=== PATIENT | male | born 1935 | race Caucasian/White ===

== ENCOUNTER 2017-11-04 10:13 | Outpatient (CLI) | payer MEDICARE ==
[2017-11-04 11:50] LABS: Hemoglobin 12.4 g/dL (14.0-18.0); Mean Corpuscular HGB CONC 33.4 g/dL (32.0-36.0); Mean Corpuscular Hemoglobin 31.4 pg (27.0-31.0); Mean Platelet Volume 6.6 fL (7.4-10.4); Platelet Count 148 thou/uL (130-400); RBC Distribution Width 12.3 % (11.5-14.5); Red Blood Cell (RBC) Count 3.95 mill/uL (4.70-6.10); White Blood Cell (WBC) Count 5.4 thou/uL (4.8-10.8)
[2017-11-04 12:16] LABS: Anion Gap 13 mmol/L (10-20); BUN (Urea Nitrogen) 22 mg/dL (8.4-25.7); Calc. Creatinine Clearance 0 mL/min (70-130); Calcium 9.3 mg/dL (7.8-10.44); Carbon Dioxide 26 mmol/L (23-31); Chloride 103 mmol/L (98-107); Estimated GFR-MDRD 47; Glucose 107 mg/dL (83-110); Potassium 4.3 mmol/L (3.5-5.1); Sodium 138 mmol/L (136-145)
--- NOTE | 2017-11-04 21:04 | EKG ---
Test Reason : Blood Pressure : / mmHG Vent. Rate : 067 BPM Atrial Rate : 067 BPM P-R Int : 124 ms QRS Dur : 172 ms QT Int : 492 ms P-R-T Axes : 031 022 -18 degrees QTc Int : 519 ms AV sequential or dual chamber electronic pacemaker When compared with ECG of 11-FEB-2016 08:10, Electronic ventricular pacemaker has replaced Sinus rhythm Confirmed by JONNY CHEN ([id number]) on 11/04/2017 9:04:20 PM Referred By: KYLEE Confirmed By:JONNY CHEN
== END 2017-11-04 10:14 | disposition home or self-care (01) ==
LOC: LABBT 10:13
PROVIDERS: ATTEND Urology
DX: Z01.818 Encounter for other preprocedural examination (principal); N50.89 Other specified disorders of the male genital organs
CPT/HCPCS: 80048; 85027; 93005; 93010

== ENCOUNTER 2017-11-12 08:13 | Day surgery (SDC) | payer MEDICARE ==
[2017-11-04 10:45] VITALS: BMI 21.7
[2017-11-12] MEDS ORDERED: cefTRIAXone\\ROCEPHIN 1 GM, Syringe 0.4 ML in Sterile Water 9.6 ML SLOW IVP SCH (09:00)
[2017-11-12] MEDS ORDERED: Dexamethasone 4 mg/ml Vial ONE (09:08)
[2017-11-12] MEDS ORDERED: Fentanyl 250 MCG/5 ML VIAL ONE (09:39)
[2017-11-12] MEDS ORDERED: Bacitracin Zinc Ointment 30 gm TUBE ONE ×2 (09:43→12:49)
[2017-11-12] MEDS ORDERED: Bupivacaine PF 0.5% 30 ML VIAL ONE (09:43)
[2017-11-12] MEDS ORDERED: Furosemide 20 MG/2 ML VIAL ONE (11:03)
[2017-11-12] MEDS ORDERED: B & O ONE (11:03)
[2017-11-12] MEDS ORDERED: Acetaminophen/Codeine 30-300mg Tablet ONE (15:34)
[2017-11-12] MEDS ORDERED: PHENYLEPHRINE-NS 100 MCG/ML 10 ML SYRINGE ONE (16:45)
[2017-11-12] MEDS ORDERED: Ondansetron HCl/PF 4 MG/2 ML Vial ONE (16:45)
[2017-11-12] MEDS ORDERED: ePHEDrine/0.9% NaCl/PF SYRINGE 50 mg/10 ml ONE (16:45)
[2017-11-12] MEDS ORDERED: Glycopyrrolate 0.2 MG/ML 5 ML SYRINGE ONE (16:45)
[2017-11-12] MEDS ORDERED: Lidocaine 1% PF 5 ML VIAL ONE (16:46)
[2017-11-12] MEDS ORDERED: PROPOFOL 200 MG/20 ML VIAL ONE (16:46)
--- NOTE | 2017-11-12 16:55 | OP ---
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 SURGEON: Anne Narvaez M.D. ANESTHESIA: General with endotracheal tube and penile block using 10 mL of Marcaine. SPECIMENS: Distal penis including the entire glans and a total of 80,941 joules used. DRAIN REMAINING: A 20-Macedonian 2-way. INDICATIONS: The patient is an 82-year-old male who was seen in the office for retention and self-catheterizing, but ultimately did have a high-riding bladder neck that was concerning for obstruction, so we discussed the pros and cons of a definitive procedure in the hopes of getting him voiding without catheterization or at least reducing the number of times that he would need to catheterize. During this time period, the patient also noticed a lesion on his penis that was concerning and definitely needed to be biopsied if not resected. 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 PROCEDURE IN DETAIL: The patient was brought to the room by Anesthesia, lying table in supine position. After receiving general anesthetic, the patient was placed supine and he was prepped and draped in sterile fashion. A penile block using 10 mL of Marcaine was performed. A Mekhi was used as a tourniquet. Then measuring approximately 2 cm from the previously biopsied lesion near the urethral meatus, T=the distal penis was sharply excised and sent for specimen in permanent fashion. 3-0 PDS was used to ligate the distal ends of the corpora , and the tourniquet was removed. Bleeding was reassessed and fulguration was used for any small vessels. Another 2 sutures were placed with PDS to ensure adequate hemostasis of the corpora, and then attention was turned to the urethra. It was spatulated and reapproximated using 4-0 Monocryl to the subcutaneous skin of the phallus. Then, knowing that we were switching to another room for GLVP, I did not place a Clemens at this time. The patient was transferred to the cystoscopy suite for the second portion of the procedure. The patient was placed supine and then with his legs elevated in lithotomy, he was reprepped and draped. Using a 22.5 Macedonian scope, the urethra was traversed and tortuosity and narrowing with inability to press the scope further was initially noted. I used gentle pressure since there was not an obvious narrowing. This failed. I attempted to place a wire beyond this. I attempted to place a Glidewire, and I could not get this to angle properly. I attempted with a 17-Macedonian cystoscope and still was not able to proceed after significant pressure/attempts. So I got a short rigid ureteroscope and was able to enter into the bladder. The bulbar urethra was very scarred and stiff, but a wire was left in place and then the 17-Macedonian cystoscope was placed over the wire. With force, I was able to go through the scarred urethra and into the bladder. This was removed, keeping the wire in place and then the 22.5 Macedonian cystoscope was back fed over this and into the bladder. Again with significant force needed to go trough the scarred portion. All of this took approximately 25 minutes before we were able to actually start the GreenLight laser portion of the case. A power of 80 was used for the entire gland since it was not significantly enlarged. Care was taken to avoid the UO's and the area was adequately opened up. Near the end of the case, it was oozing from the right side and coagulation was used to coagulate this area. At a minimal volume, it was still noted to be oozing further from the right side of the prostate; more of the gland was removed in order to further isolate this area and help with hemostasis. So by the end of the case, there was no bleeding noted with a relatively decompressed bladder. Leaving a stiff wire in place, the scope was removed, and a 20-Macedonian catheter was placed over the wire and into the bladder. The bladder was then hand irrigated. No clots were noted. There was some blood tinged urine, which was anticipated. At this point, the catheter was secured, and bacitracin and sterile gauze was placed over the end of the penis itself. The patient tolerated the procedure well. ALEXANDER
== END 2017-11-12 17:05 | disposition home or self-care (01) ==
LOC: SDC 08:13
PROVIDERS: ATTEND Urology
PROC: 0VBSXZZ Excision of Penis, External Approach (ICD-10-PCS; principal; 2017-11-12)
PROC: 0V508ZZ Destruction of Prostate, Via Natural or Artificial Opening Endoscopic (ICD-10-PCS; 2017-11-12)
DX: C60.1 Malignant neoplasm of glans penis (principal); N40.1 Benign prostatic hyperplasia with lower urinary tract symptoms; R33.8 Other retention of urine; N35.9 Urethral stricture, unspecified; N28.9 Disorder of kidney and ureter, unspecified; I10 Essential (primary) hypertension; I48.91 Unspecified atrial fibrillation; Z79.01 Long term (current) use of anticoagulants; Z79.899 Other long term (current) drug therapy; Z90.89 Acquired absence of other organs; Z85.47 Personal history of malignant neoplasm of testis; Z87.440 Personal history of urinary (tract) infections; Z85.858 Personal history of malignant neoplasm of other endocrine glands; Z87.891 Personal history of nicotine dependence; Z92.3 Personal history of irradiation
CPT/HCPCS: 52648; 54120; 88307; C1758; C1769; A4216; J0696; J1100; J1940; J2001; J2405; J2704; J3010; S0020

== ENCOUNTER 2017-11-15 15:27 | Emergency (ER) | payer MEDICARE ==
[2017-11-15 16:14] LABS: Bilirubin Negative (Negative); Blood, Urine Large (Negative); Clarity Opaque (Clear); Glucose, Urine (Dipstick) Unable to Interpret mg/dL (Negative); Nitrite Unable to Interpret (Negative); Protein, Urine (Dipstick) > or equal to 300 mg/dL (Neg-Trace); Urobilinogen 0.2 mg/dL (0.2-1.0); pH, Urine 7.5 (5.0-9.0)
[2017-11-15 16:15] LABS: Leukocyte Trace (Negative)
[2017-11-15 16:17] LABS: RBC/HPF GREATER THAN 50-TNTC HPF (0-3)
[2017-11-15 16:18] LABS: Bacteria/HPF None Seen HPF (None Seen); Hyaline Casts/LPF NONE SEEN LPF (0-3 Hyaline); Squamous Epithelial 0-3 HPF (0-3)
== END 2017-11-15 17:01 | disposition home or self-care (01) ==
LOC: ERS 15:27
DX: T83.018A Breakdown (mechanical) of other urinary catheter, initial encounter (principal); R31.9 Hematuria, unspecified; I25.10 Atherosclerotic heart disease of native coronary artery without angina pectoris; N28.9 Disorder of kidney and ureter, unspecified; I35.0 Nonrheumatic aortic (valve) stenosis; Z85.47 Personal history of malignant neoplasm of testis; Z85.51 Personal history of malignant neoplasm of bladder; Z79.899 Other long term (current) drug therapy
CPT/HCPCS: 51702; 81003; 81015

== ENCOUNTER 2018-10-16 18:03 | Inpatient (IN) | payer MEDICARE ==
[2018-10-16 20:16] LABS: CKMB 2.5 ng/mL (0-6.6)
[2018-10-16] MEDS ORDERED: Piperacillin/Tazobactam 4.5 GM VIAL ONE (20:47)
--- NOTE | 2018-10-16 21:51 | CT ---
CT OF THE ABDOMEN AND PELVIS WITHOUT IV CONTRAST: 10/16/18 INDICATION: History of vomiting. COMPARISON: Prior study dated 07/14/14. FINDINGS: There are dilated loops of small bowel with a transition zone seen within the right upper quadrant o n image 37 of series 2. There is small bowel feces sign within the dilated loop of the distal ileum. The terminal ileum is normal. There is moderate distention of the bladder. There is postsurgical change of a partial small bowel re section with primary anastomosis within the left mid abdomen. There is severe vascular calcifications of the abdominopelvic vasculature. There is moderate distention of the bladder. There is air space c onsolidation of the right lower lobe. Unopacified liver, pancreas, adrenal glands, and right kidney a ppears within normal limits. The left kidney is atrophic with small cysts which are stable to prior e xam. Spleen is normal in size. There is medial scoliosis of the lumbar spine. There is scattered degenerative and osteoarthritic jerry nge. IMPRESSION: 1. Findings suggestive of moderate grade partial small bowel obstruction. Transition zone within the right upper quadrant of the abdomen. 2. Air space consolidation right lower lobe suspicious for aspiration or pneumonia. 3. Other chronic findings as above. POS: BENJI
[2018-10-16] MEDS ORDERED: Ondansetron PF 4 MG/2 ML Vial IVP PRN (22:06)
[2018-10-16] MEDS ORDERED: Zolpidem Tartrate 5 MG TAB PO PRN (22:06)
[2018-10-16] MEDS ORDERED: Senokot S 8.6-50 MG TAB PO PRN (22:06)
[2018-10-16] MEDS ORDERED: Acetaminophen 325 MG TAB PO PRN (22:06)
[2018-10-16 22:44] LABS: Troponin I 0.074 ng/mL (< 0.028)
[2018-10-17] MEDS ORDERED: Ondansetron ODT 4 MG TAB ONE (00:33)
[2018-10-17 02:00] LABS: Troponin I 0.091 ng/mL (< 0.028)
[2018-10-17 03:53] LABS: #Lymphocytes 0.4 thou/uL (1.20-3.40); #Monocytes 0.9 thou/uL (0.11-0.59); #Neutrophils 5.4 thou/uL (1.40-6.50); %Basophils 0.6 % (0.0-1.0); %Eosinophils 0.1 % (0.0-10.0); %Lymphocytes 6.5 % (21.0-51.0); %Monocytes 12.6 % (0.0-10.0); %Neutrophils 80.1 % (42.0-75.0); Hemoglobin 12.9 g/dL (14.0-18.0); Mean Corpuscular HGB CONC 34.2 g/dL (32.0-36.0); Mean Corpuscular Hemoglobin 30.9 pg (27.0-31.0); Mean Corpuscular Volume 90.2 fL (78.0-98.0); Mean Platelet Volume 6.8 fL (7.4-10.4); Platelet Count 133 thou/uL (130-400); RBC Distribution Width 12.3 % (11.5-14.5); Red Blood Cell (RBC) Count 4.19 mill/uL (4.70-6.10); White Blood Cell (WBC) Count 6.8 thou/uL (4.8-10.8)
[2018-10-17 04:10] LABS: Anion Gap 16 mmol/L (10-20); BUN (Urea Nitrogen) 44 mg/dL (8.4-25.7); Calc. Creatinine Clearance 0 mL/min (70-130); Calcium 9.3 mg/dL (7.8-10.44); Carbon Dioxide 27 mmol/L (23-31); Chloride 92 mmol/L (98-107); Estimated GFR-MDRD 28; Glucose 99 mg/dL (83-110); Potassium 4.4 mmol/L (3.5-5.1); Sodium 131 mmol/L (136-145)
[2018-10-17 04:14] LABS: Troponin I 0.083 ng/mL (< 0.028)
[2018-10-17 06:25] LABS: Troponin I 0.078 ng/mL (< 0.028)
[2018-10-17] MEDS ORDERED: hydrALAZINE 20 MG/ML VIAL SLOW IVP PRN (10:21)
[2018-10-17] MEDS ORDERED: Labetalol HCl 100 MG/20 ML VIAL SLOW IVP PRN (10:21)
--- NOTE | 2018-10-17 10:29 | PDOC.PN ---
- Subjective Encounter Start Date: 10/17/18 Encounter Start Time: 10:27 Temitope Oakes was seen today in follow-up of small bowel obstruction. He has has several large bowel movements this morning. It is reported that his stools are now watery, and he has had many. He denies any abdominal pain. He denies feeling short of breath. he does admit to an occasional cough. - Objective Resuscitation Status - Order Detail: 10/16/18 22:06 Resuscitation Status Routine Resuscitation Status: FULL: Full Resuscitation Discussed with: patient MAR Reviewed: Yes Result Diagrams: 10/17/18 03:27 10/17/18 03:27 Phys Exam - Physical Examination HEENT: PERRLA Respiratory: no wheezing + rales at the right base, Cardiovascular: RRR, no significant murmur, no rub Gastrointestinal: soft, non-tender, no distention, positive bowel sounds Musculoskeletal: no edema, pulses present Dx/Plan (1) Partial small bowel obstruction Status: Acute (2) Diarrhea Code(s): R19.7 - DIARRHEA, UNSPECIFIED Status: Acute (3) S/P TAVR (transcatheter aortic valve replacement) Code(s): Z95.2 - PRESENCE OF PROSTHETIC HEART VALVE Status: Chronic (4) Hypertension Code(s): I10 - ESSENTIAL (PRIMARY) HYPERTENSION Status: Chronic (5) Chronic anticoagulation Code(s): Z79.01 - OCEAN FORWARDER (CURRENT) USE OF ANTICOAGULANTS Status: Chronic (6) Acute on chronic kidney failure Code(s): N17.9 - ACUTE KIDNEY FAILURE, UNSPECIFIED; N18.9 - CHRONIC KIDNEY DISEASE, UNSPECIFIED Status: Acute (7) CAD (coronary artery disease) Code(s): I25.10 - ATHSCL HEART DISEASE OF [place] CORONARY ARTERY W/O ANG PCTRS Status: Chronic - Plan * Partial small bowel obstruction- will check a small bowel X-ray to determine if this has resolved- clinically it appears so * Diarrhea- this is perfuse - will check stool studies * HTN- will have PRN medication available * CAD- stable * Chronic anticoagulation- Eliquis is on hold, if stool is negative for occult blood then will re-start with Elquis ( if obstruction resolved or bridge with Lovenox).
[2018-10-17] MEDS ORDERED: Dextrose 5 % And 0.9 % NaCl 1,000 ML IV SCH ×2 (10:30)
[2018-10-17] MEDS ORDERED: MD-Gastroview 120 ML BOT ONE (13:48)
[2018-10-17] MEDS: Piperacillin/Tazobactam 2.25 GM in Sodium Chloride 0.9% 100 ML IVPB SCH ×2 (14:02→21:33)
--- NOTE | 2018-10-17 14:18 | RAD ---
SMALL BOWEL FOLLOW THROUGH: Date: 10/17/18 INDICATION: Partial small bowel obstruction. FINDINGS: [employer] Basis Trader images demonstrate mildly distended loops of small bowel within the central abdomen. Gas is pre sent at the level of the rectum. There is a rectal tube within the rectum. There is patchy opacity wi thin the right lung base. There are scattered vascular calcifications. Subsequent images after admini stration of Gastrografin contrast demonstrate migration of contrast through mildly dilated loops of s mall bowel within the mid to right lower quadrant of the abdomen. There is contrast opacification of the colon by the 25 minute time lori. Contrast is at the level of the rectum by the 1 hour time lori. IMPRESSION: Mild to moderate partial small bowel obstruction. Small bowel transit time of 25 minutes. POS: CANDIDA
[2018-10-17 16:47] VITALS: BMI 17.7
--- NOTE | 2018-10-17 18:52 | PDOC.EVN ---
Event Note - Event Note Event Note: Will place on Heparin SQ while Eliquis is on HOLD
[2018-10-17] MEDS: Dextrose 5 % And 0.9 % NaCl 1,000 ML IV SCH (19:10)
[2018-10-17] MEDS: Heparin 5,000 UNITS/ML VIAL SC SCH (21:34)
[2018-10-17] MEDS: Famotidine/PF 20 mg/2ml Vial SLOW IVP SCH (21:34)
[2018-10-18] MEDS: Dextrose 5 % And 0.9 % NaCl 1,000 ML IV SCH ×3 (00:16→09:08)
[2018-10-18] MEDS: Piperacillin/Tazobactam 2.25 GM in Sodium Chloride 0.9% 100 ML IVPB SCH (05:53)
[2018-10-18 06:31] LABS: Anion Gap 12 mmol/L (10-20); BUN (Urea Nitrogen) 48 mg/dL (8.4-25.7); Calc. Creatinine Clearance 21 mL/min (70-130); Calcium 8.6 mg/dL (7.8-10.44); Carbon Dioxide 27 mmol/L (23-31); Chloride 106 mmol/L (98-107); Estimated GFR-MDRD 33; Glucose 204 mg/dL (83-110); Potassium 3.5 mmol/L (3.5-5.1); Sodium 141 mmol/L (136-145)
[2018-10-18 06:32] LABS: Band 4 % (5-11); Eosinophils 2 % (0-10); Hemoglobin 11.8 g/dL (14.0-18.0); Lymphocytes 15 % (21-51); MDiff Complete? YES; Mean Corpuscular HGB CONC 34.1 g/dL (32.0-36.0); Mean Corpuscular Hemoglobin 30.6 pg (27.0-31.0); Mean Corpuscular Volume 89.8 fL (78.0-98.0); Mean Platelet Volume 6.9 fL (7.4-10.4); Monocytes 8 % (0-10); Neutrophil 71 % (42-75); Platelet Count 130 thou/uL (130-400); Platelet Morphology Comment Appears Adequate; RBC Distribution Width 12.4 % (11.5-14.5); Red Blood Cell (RBC) Count 3.85 mill/uL (4.70-6.10); White Blood Cell (WBC) Count 4.1 thou/uL (4.8-10.8)
[2018-10-18] MEDS: Famotidine/PF 20 mg/2ml Vial SLOW IVP SCH ×2 (09:07→20:36)
[2018-10-18] MEDS ORDERED: Apixaban 2.5 MG TAB PO SCH ×2 (09:12→21:00)
[2018-10-18] MEDS: Heparin 5,000 UNITS/ML VIAL SC SCH (09:24)
[2018-10-18] MEDS: Apixaban 2.5 MG TAB PO SCH ×2 (10:17→20:36)
[2018-10-18] MEDS: Sotalol HCl 80 MG TAB PO SCH ×2 (10:17→20:37)
--- NOTE | 2018-10-18 16:18 | PDOC.PN ---
- Subjective Encounter Start Date: 10/18/18 Encounter Start Time: 16:16 Mr. Linn was seen today in follow-up of partial small bowel obstruction. He was seen earlier this morning, and again this afternoon. He does not have any nausea or vomiting, and the diarrhea has resolved. He also denies any abdominal pain. - Objective Resuscitation Status - Order Detail: 10/16/18 22:06 Resuscitation Status Routine Resuscitation Status: FULL: Full Resuscitation Discussed with: patient MAR Reviewed: Yes Vital Signs & Weight: Vital Signs (12 hours) Temp Pulse BP Pulse Ox 10/18/18 14:58 98.1 F 10/18/18 10:38 97.2 F L 10/18/18 10:17 70 150/86 H 10/18/18 08:00 95 10/18/18 07:06 98.0 F Weight Admit Weight 116 lb 13.52 oz Weight 116 lb 13.52 oz Most Recent Monitor Data Heart Rate from ECG 71 NIBP 186/107 NIBP BP-Mean 133 Respiration from ECG 17 SpO2 100 I&O: 10/17/18 10/18/18 10/19/18 06:59 06:59 06:59 Intake Total 225 Output Total 1450 Balance -1225 Result Diagrams: 10/18/18 05:27 10/18/18 05:27 Phys Exam - Physical Examination HEENT: PERRLA Respiratory: no wheezing, no rales, no rhonchi, clear to auscultation bilateral Cardiovascular: RRR, no significant murmur, no rub Gastrointestinal: soft, non-tender, no distention, positive bowel sounds Musculoskeletal: no edema, pulses present Dx/Plan (1) Partial small bowel obstruction Status: Acute (2) Diarrhea Code(s): R19.7 - DIARRHEA, UNSPECIFIED Status: Acute (3) S/P TAVR (transcatheter aortic valve replacement) Code(s): Z95.2 - PRESENCE OF PROSTHETIC HEART VALVE Status: Chronic (4) Hypertension Code(s): I10 - ESSENTIAL (PRIMARY) HYPERTENSION Status: Chronic (5) Chronic anticoagulation Code(s): Z79.01 - SURVEYOR HYDROGRAPHIC (CURRENT) USE OF ANTICOAGULANTS Status: Chronic (6) Acute on chronic kidney failure Code(s): N17.9 - ACUTE KIDNEY FAILURE, UNSPECIFIED; N18.9 - CHRONIC KIDNEY DISEASE, UNSPECIFIED Status: Acute (7) CAD (coronary artery disease) Code(s): I25.10 - ATHSCL HEART DISEASE OF [place] CORONARY ARTERY W/O ANG PCTRS Status: Chronic - Plan * Partial Small Bowel Obstruction- resolved * AFIB- will re-start Sotolal and Elquis- Heparin will be discontinued * CAD- stable * HTN- blood pressure is elevated- will continue PRN Hydralazine and Labetalol * Aspiration Pneumonia- change Zosyn to Augmentin * Willadvance to clear liquids, and then as tolerated. He can likely be discharged home this evening if he tolerates a solid diet..
[2018-10-18] MEDS: Amoxicillin/Potassium Clav 875 MG TAB PO SCH (20:36)
[2018-10-18] MEDS ORDERED: Atorvastatin Calcium 20 MG TAB PO SCH (21:00)
[2018-10-19] MEDS ORDERED: Cyanocobalamin (Vitamin B-12) 1,000 MCG TAB PO SCH (09:00)
[2018-10-19] MEDS: Apixaban 2.5 MG TAB PO SCH (09:02)
[2018-10-19] MEDS: Amoxicillin/Potassium Clav 875 MG TAB PO SCH (09:02)
[2018-10-19] MEDS: Famotidine/PF 20 mg/2ml Vial SLOW IVP SCH (09:03)
[2018-10-19] MEDS: Sotalol HCl 80 MG TAB PO SCH (09:04)
[2018-10-19 09:11] VITALS: BP 171/96
[2018-10-19 15:13] VITALS: TEMP 97.7
--- NOTE | 2018-10-19 18:52 | DIS ---
DATE OF ADMISSION: 10/16/2018 DATE OF DISCHARGE: 10/19/2018 DISCHARGE DIAGNOSES: 1. Partial small bowel obstruction, conservatively managed, resolving. 2. Right lower lobe pneumonia, mild. 3. Diarrhea, resolving. 4. Hypertension, stable. 5. Chronic anticoagulation with Eliquis. 6. Acute kidney injury on chronic kidney disease. CONSULTATIONS: Dr. El with General Surgery Service. PERTINENT LAB AND X-RAY FINDINGS: Sodium ranged between 129 to 141. Creatinine ranged between 1.95 to 2.36. Estimated GFR ranged between 26 to 33. Troponin I ranged between 0.074 to 0.091. CBC showed a hemoglobin ranging between 11.8 to 12.9. Urine culture dated 10/16/2018, showed 50,000 to 75,000 colonies of enterobacter cloacae complex. Stool Hemoccult dated 10/17/2018, negative x1. Stool lactoferrin dated 10/17/2018, positive. C difficile antigen and toxin on 10/17/2018, negative. CT of the abdomen and pelvis dated 10/16/2018, showed moderate grade partial small bowel obstruction with transition zone in the right upper quadrant. Airspace consolidation in the right lower lobe. Small bowel x-ray dated 10/17/2018, showed mild to moderate partial small bowel obstruction. HOSPITAL COURSE: This patient was initially admitted to the intermediate care unit after presenting with increased abdominal pain with CT imaging of the abdomen and pelvis showing evidence of partial small bowel obstruction. The patient was placed on n.p.o. status and given IV fluids. The patient slowly clinically improved with conservative management. N.p.o. status and pain medications. The patient underwent plain radiographs of small bowel showing overall improvement and obstruction, and did not need acute surgical intervention. The patient initially was placed on a rectal tube in the emergency department due to persistent diarrhea. However, this was discontinued. The patient was also placed on antibiotic therapy after consolidation and the right lower lobe was noted on CT imaging. The patient was also noted with enterobacter species. Positive urine culture and continued on Augmentin 875 mg twice daily. Overall, the patient did remain clinically stable and advanced diet, tolerating regular oral intake without nausea or vomiting. The patient to clinically improved with supportive and conservative management. I have examined the patient the time of discharge and discussed followup instructions. The patient overall verbalized understanding and agreement, and ready for discharge on 10/19/2018. DISCHARGE MEDICATIONS: 1. Eliquis 2.5 mg p.o. b.i.d. 2. Lipitor 20 mg p.o. at bedtime. 3. Vitamin D3 of 2000 units p.o. daily. 4. Vitamin B12 1250 mcg p.o. daily. 5. Sotalol 40 mg p.o. b.i.d. 6. Zantac 150 mg p.o. at bedtime. 7. Amoxicillin/clavulanic acid 875 mg p.o. b.i.d. 8. Florastor 250 mg p.o. daily. FOLLOWUP: The patient may follow up with primary care provider, Dr. Dina Chahal within 7 days of discharge. CONDITION ON DISCHARGE: Stable. ACTIVITY: Ad-vasiliy. DIET: Heart healthy. CODE STATUS: Full. DISPOSITION: Home, 10/19/2018. Job ID: [id number]
--- NOTE | 2018-10-21 14:12 | PQF ---
GERHARD ROGERS,GARRY CABRERABRODY DO [id number] [facility]- B05 [id number] CLINICAL DOCUMENTATION IMPROVEMENT CLARIFICATION FORM: ICD-10 Updated PLEASE DO AN ADDENDUM TO THE PROGRESS NOTE WITH ANY DOCUMENTATION UPDATES OR ADDITIONS AND CARRY THROUGH TO DC SUMMARY. THANK YOU. DATE: 10-21-18 ATTN: DR. CABRERA Please exercise your independent, professional judgment in responding to the clarification form. Clinical indicators are provided on the bottom of this form for your review Please check appropriate box(s): [ ] Acute on Chronic Renal Failure Stage III [ ] Acute on Chronic Renal Failure Stage [ ] Other diagnosis [ ] Unable to determine National Kidney Foundation Guidelines for CKD Staging Stage I Kidney damage with normal or increased GFR GFR > 90 Stage IIKidney damage with mildly decreased GFR GFR 60-89 Stage III Kidney damage with moderately decreased GFR GFR 30-59 Stage IVKidney damage with severely decreased GFR GFR 16-29 Stage VKidney failure GFR <15 ESRD End Stage Renal Disease On dialysis Acute Renal Failure/Acute Kidney Failure defined as: Increases in SCr by (>) 0.3 mg/dl within 48 hours OR- Increases in SCr by (>) 1.5 times baseline, known or presumed to have occurred within the prior 7 days OR- Urine volume < 0.5 ml/kg/hour for 6 hours (KDIGO supplement 2012 for RIFLE/SELENE criteria) For continuity of documentation, please document condition throughout progress notes and discharge summary. Thank You. CLINICAL INDICATORS - SIGNS / SYMPTOMS / LABS LABS: BUN CREAT GFR 10-17 44 2.26 28 10-18 48 2.26 33 ED: MARLENA 10-17 H&P (DEREK): ACUTE ON CHRONIC KIDNEY FAILURE 10-19 (DEBORAH): MARLENA ON CKD RISK FACTORS 10-17 (DEREK): MARLENA ON CKD W/ PARTIAL SBO W/PERFUSE DIARRHEA TREATMENTS: MAR: DEXTROSE 5% AND 0.9 NaCL @ 75 ML/HR ON 10-17 THEN 125MLS/HR 10-18 THANK YOU, LYNNE (This form is maintained as a part of the permanent medical record) 2015 [facility], [employer]. All Rights Reserved Lynne Cosme RN, BS [email or web address] [facility]
--- NOTE | 2018-10-21 14:28 | PQF ---
GERHARD ROGERS,GARRY CABRERABRODY DO [id number] [facility]- B05 [id number] CLINICAL DOCUMENTATION IMPROVEMENT CLARIFICATION FORM: ICD-10 Updated PLEASE DO AN ADDENDUM TO THE PROGRESS NOTE WITH ANY DOCUMENTATION UPDATES OR ADDITIONS AND CARRY THROUGH TO DC SUMMARY. THANK YOU. Date: 10-21-18 ATTN: DR. CABRERA Please exercise your independent, professional judgment in responding to the clarification form. Clinical indicators are provided on the bottom of this form for your review Please check appropriate box(s): [ ] Underweight without malnutrition [ ] Cachexia [ ] Other diagnosis [ ] Unable to determine CLINICAL INDICATORS - SIGNS / SYMPTOMS / LABS BMI of 17 10-17 Nutrition Assessment; SUBOPTIMAL ORAL INTAKE RISK FACTORS 10-17 (DEREK): PARTIAL SBO; ACUTE ON CHRONIC KIDNEY FAILURE TREATMENT: 10-17 Nutrition Assessment; SUBOPTIMAL ORAL INTAKE * When medically appropriate, recommend ADAT to a Renal-Protein Low/Heart Healthy diet * Recommend Suplena TID once diet is ordered Moderate Malnutrition (in acute illness) Energy Intake: <75% of estimated energy requirement for > 7 days Weight Loss: 1-2%/1 week; 5%/ 1 month; 7.5%/3 months Other: mild body fat loss; mild muscle mass loss; mild fluid accumulation; Severe Malnutrition (in acute illness) Energy Intake: < 50% of estimated energy requirement for > 5 days Weight Loss: >1-2%/1 week; >5%/1 month; >7.5%/3 months Other: moderate body fat loss; moderate muscle mass loss; moderate- severe fluid accumulation; measurably reduced ceramic chemist strength Moderate Malnutrition (in chronic illness) Energy Intake: <75% of estimated energy requirement for >1 month Weight Loss: 5%/1 month; 7.5%/3 months; 10%/6 months; 20%/1 year Other: mild body fat loss; mild muscle mass loss; mild fluid accumulation Severe Malnutrition (in chronic illness) Energy Intake: <75% of estimated energy requirement for >1 month Weight Loss: >5%/1 month; >7.5%/3 months; >10%/6 months; >20%/1 year Other: severe body fat loss; severe muscle mass loss; severe fluid accumulation ; measurably reduced ceramic chemist strength THAN LYNNE TOBIN (This form is maintained as a part of the permanent medical record) 2014 [employer] All Rights Reserved Lynne Cosme RN, BS [email or web address] Cell [facility]
== END 2018-10-19 18:34 | disposition home or self-care (01) | DRG 389 ==
LOC: ERS 18:03 → ERHOLD 21:32 → IMCU/EMU 10-17 15:56
PROVIDERS: ADMIT Internal Medicine; ATTEND Internal Medicine
DX: K56.600 Partial intestinal obstruction, unspecified as to cause (principal); N17.9 Acute kidney failure, unspecified; Z95.2 Presence of prosthetic heart valve; Z79.01 Long term (current) use of anticoagulants; N18.9 Chronic kidney disease, unspecified; I12.9 Hypertensive chronic kidney disease with stage 1 through stage 4 chronic kidney disease, or unspecified chronic kidney disease; I25.10 Atherosclerotic heart disease of native coronary artery without angina pectoris; R19.7 Diarrhea, unspecified
CPT/HCPCS: 36415; 74176; 74250; 80048; 82274; 82553; 83630; 84484; 85025; 87324; 87449; 87899; 93005; 96365; J1644; J2543; J7050; Q0162; Q9963; S0028